=== PATIENT | female | born 2000 | race Caucasian/White ===

== ENCOUNTER 2020-03-02 12:08 | Inpatient (IN) | payer OTHER ==
[~2020-03-02] VITALS: Ht 149.9 cm; Wt 68.0 kg
[~2020-03-02 12:08] MED LIST: CEPH250SUA PO; Crutch1 EACH MISC; IBUP400 PO; IBUP600 PO; OMEP20ER PO; OMEP40CA12 PO; RANI150EL PO; Vigamox3 ML RIGHTEYE
[2020-03-02 12:56] LABS: BASOPHILS ABSOLUTE AUTO 0.01 K/mm3 (0.00-0.23); BASOPHILS PERCENT AUTO 0 % (0-2); EOSINOPHILS ABSOLUTE AUTO 0.04 K/mm3 (0.00-0.68); EOSINOPHILS PERCENT AUTO 1 % (0-6); Hematocrit 33.1 % (33.0-51.0); Hemoglobin 10.8 g/dL (11.5-16.0); IMMATURE GRAN ABSOLUTE AUTO 0.05 K/mm3 (0.00-0.10); IMMATURE GRAN PERCENT AUTO 1 % (0-1); LYMPHOCYTES ABSOLUTE AUTO 1.92 K/mm3 (0.84-5.20); LYMPHOCYTES PERCENT AUTO 23 % (21-46); MONOCYTES ABSOLUTE AUTO 0.64 K/mm3 (0.16-1.47); MONOCYTES PERCENT AUTO 8 % (4-13); Mean Corpuscular HGB 29.5 pg (26.0-34.0); Mean Corpuscular HGB Conc 32.6 g/dL (31.5-36.5); Mean Corpuscular Volume 90 fL (80-100); Mean Platelet Volume 11.7 fL (9.1-12.4); NEUTROPHILS PERCENT AUTO 68 % (41-73); Platelet Count 227 K/mm3 (150-400); RDW Coefficient Variation 12.9 % (11.7-14.2); RDW Standard Deviation 42.4 fL (35.1-46.3); Red Blood Cell Count 3.66 M/mm3 (3.80-5.20); White Blood Cell Count 8.36 K/mm3 (4.00-11.30)
[2020-03-02 13:06] LABS: Creatinine, Urine Random 67.7 mg/dL (27.00-270.00); Protein, Urine Random 50.3 mg/dL (0.0-11.9); Protein/Creat Ratio, Ur Random 0.7
[2020-03-02 13:23] LABS: Alanine Aminotransfer (ALT/SGP 27 U/L (12-78); Albumin, Blood 2.5 g/dL (3.4-5.0); Albumin/Globulin Ratio 0.6 (0.8-1.8); Alk Phos 184 U/L (50-136); Anion Gap 11 mmol/L (6-16); Aspartate Aminotrans (AST/SGOT 31 U/L (12-37); Bilirubin, Total 0.4 mg/dL (0.1-1.0); Blood Urea Nitrogen 13 mg/dL (8-24); Bun/Creatinine Ratio 22.8 (12.0-20.0); CO2, Blood 20 mmol/L (21-32); Calcium, Blood 8.5 mg/dL (8.5-10.1); Chloride, Blood 107 mmol/L (98-108); Creatinine, Blood 0.57 mg/dL (0.40-1.00); Globulin, Blood 4.1 g/dL (2.2-4.0); Glomerular Filtration Rate >60 (60-); Glucose, Blood 97 mg/dL (70-99); Potassium, Blood 4.2 mmol/L (3.5-5.5); Sodium, Blood 138 mmol/L (136-145); Total Protein, Blood 6.6 g/dL (6.4-8.2)
--- NOTE | 2020-03-02 14:27 | NUR ---
HERE FROM [facility] TO VISIT FAMILY. BP ELEVATED TWICE SO CAME FOR EVALUATION URINE PROTEIN/CREATNINE RATIO ELEVATED. PATIENT WILL BE 23 HOUR OBS AND 24 HOUR URINE PROTEIN
[2020-03-02] MEDS ORDERED: TUMS500 MG PO (14:49)
--- NOTE | 2020-03-02 17:00 | NUR ---
at 1600ish and 1700ish pt temp was done with temporal thermometer, on rt side at 1600 100.3 on rt side, when done on lt side 99.4 at 1700 98.9 on rt, when done on lt sie 99.4. pt reports feels a little warm she reports, pt denies any allergies to medications, pt is aware she doesnt have a fever, but we will continue to watch for temps.
--- NOTE | 2020-03-02 17:30 | NUR ---
urine dip done per dr cox request, only used 0.3cc of urine, total out is 700cc of urine for day shift
--- NOTE | 2020-03-02 18:42 | NUR ---
orders from dr cox to admit for cytotec induction til roberts of 8. then start pitocin, dr cox reports checked pt cervix was 1cm, thin, -[address] cox aware of increase in BP, stop 24 hour collection, dr cox talked to pt OB doc in [place], per verbal over the phone, put in a dr note the pt labs of gbs, rubella in the note. not able at this time to get a copy of the dr office visits.
--- NOTE | 2020-03-02 19:09 | NUR ---
report to rn
[2020-03-03 07:16] LABS: BASOPHILS ABSOLUTE AUTO 0.02 K/mm3 (0.00-0.23); BASOPHILS PERCENT AUTO 0 % (0-2); EOSINOPHILS ABSOLUTE AUTO 0.08 K/mm3 (0.00-0.68); EOSINOPHILS PERCENT AUTO 1 % (0-6); Hemoglobin 11.2 g/dL (11.5-16.0); IMMATURE GRAN ABSOLUTE AUTO 0.05 K/mm3 (0.00-0.10); IMMATURE GRAN PERCENT AUTO 0 % (0-1); LYMPHOCYTES ABSOLUTE AUTO 2.89 K/mm3 (0.84-5.20); LYMPHOCYTES PERCENT AUTO 23 % (21-46); MONOCYTES ABSOLUTE AUTO 0.81 K/mm3 (0.16-1.47); MONOCYTES PERCENT AUTO 6 % (4-13); Mean Corpuscular HGB 29.8 pg (26.0-34.0); Mean Corpuscular HGB Conc 32.9 g/dL (31.5-36.5); Mean Corpuscular Volume 90 fL (80-100); Mean Platelet Volume 11.7 fL (9.1-12.4); NEUTROPHILS ABSOLUTE AUTO 8.84 K/mm3 (1.96-9.15); NEUTROPHILS PERCENT AUTO 70 % (41-73); Platelet Count 236 K/mm3 (150-400); RDW Standard Deviation 42.2 fL (35.1-46.3); Red Blood Cell Count 3.76 M/mm3 (3.80-5.20); White Blood Cell Count 12.69 K/mm3 (4.00-11.30)
--- NOTE | 2020-03-03 07:50 | NUR ---
dr cox reports pt is rubella immune per the phone conversation with pt dr ozuna in [place]. 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
[2020-03-03 07:54] LABS: Alanine Aminotransfer (ALT/SGP 26 U/L (12-78); Albumin, Blood 2.6 g/dL (3.4-5.0); Albumin/Globulin Ratio 0.6 (0.8-1.8); Alk Phos 186 U/L (50-136); Anion Gap 12 mmol/L (6-16); Aspartate Aminotrans (AST/SGOT 30 U/L (12-37); Bilirubin, Total 0.5 mg/dL (0.1-1.0); Blood Urea Nitrogen 12 mg/dL (8-24); Bun/Creatinine Ratio 23.1 (12.0-20.0); CO2, Blood 19 mmol/L (21-32); Calcium, Blood 8.4 mg/dL (8.5-10.1); Chloride, Blood 107 mmol/L (98-108); Creatinine, Blood 0.52 mg/dL (0.40-1.00); Globulin, Blood 4.1 g/dL (2.2-4.0); Glomerular Filtration Rate >60 (60-); Glucose, Blood 90 mg/dL (70-99); Potassium, Blood 3.8 mmol/L (3.5-5.5); Sodium, Blood 138 mmol/L (136-145); Total Protein, Blood 6.7 g/dL (6.4-8.2)
--- NOTE | 2020-03-03 21:44 | NUR ---
RT CALLED FOR ASSESSMENT OF 3 MIN OLD . PT HAD INCREASED RR OF 60, NO DISTRESS OR INCREASED WOB. SATS 88%. PT HAD GOOD TONE AND COLOR. NO RT INTERVENTION DONE. RT DISMISSED BY RAQUEL SANDOVAL.
[2020-03-03 22:00] LABS: PCO2 Cord - Arterial 63.8 mmHg (40-50); PO2 Cord - Arterial 14.8 mmHg (16-20); pH Cord - Arterial 7.15 (7.28-7.35)
[2020-03-03 22:02] LABS: PCO2 Cord - Venous 55.8 mmHg (40-50); PO2 Cord - Venous 16.3 mmHg (28-32); pH Umbilical Cord - Venous 7.23 (7.26-7.35)
[2020-03-04 05:38] LABS: Hematocrit 28.9 % (33.0-51.0); Hemoglobin 9.5 g/dL (11.5-16.0); Mean Corpuscular HGB 29.5 pg (26.0-34.0); Mean Corpuscular HGB Conc 32.9 g/dL (31.5-36.5); Mean Corpuscular Volume 90 fL (80-100); Platelet Count 224 K/mm3 (150-400); RDW Standard Deviation 42.5 fL (35.1-46.3); Red Blood Cell Count 3.22 M/mm3 (3.80-5.20)
--- NOTE | 2020-03-05 09:41 | NUR ---
RN ROUNDED TO HELP W/ . PT REPORTS THAT IS GOING REALLY WELL. PT DENIES ANY QUESTIONS OR CONCERNS R/T BREASFTFEEDING.
== END 2020-03-05 10:15 | disposition home or self-care (01) | DRG 807 ==
LOC: OBS 12:08 → BC 12:08 → OBS 13:52 → BC 18:47
PROVIDERS: ADMIT Family Medicine
PROC: 3E0P7VZ Introduction of Hormone into Female Reproductive, Via Natural or Artificial Opening (ICD-10-PCS; 2020-03-02)
PROC: 10E0XZZ Delivery of Products of Conception, External Approach (ICD-10-PCS; principal; 2020-03-03)
PROC: 10907ZC Drainage of Amniotic Fluid, Therapeutic from Products of Conception, Via Natural or Artificial Opening (ICD-10-PCS; 2020-03-03)
PROC: 0HQ9XZZ Repair Perineum Skin, External Approach (ICD-10-PCS; 2020-03-03)
PROC: 00HU33Z Insertion of Infusion Device into Spinal Canal, Percutaneous Approach (ICD-10-PCS; 2020-03-03)
PROC: 3E0R3BZ Introduction of Anesthetic Agent into Spinal Canal, Percutaneous Approach (ICD-10-PCS; 2020-03-03)
DX: O14.94 Unspecified pre-eclampsia, complicating childbirth (principal); Z37.0 Single live birth; O70.0 First degree perineal laceration during delivery; Z3A.38 38 weeks gestation of pregnancy; O32.6XX0 Maternal care for compound presentation, not applicable or unspecified
CPT/HCPCS: 36415; 51702; 59025; 80053; 82570; 82803; 84156; 85025; 85027; 86850; 86900; 86901; J1885; J2001; J2590; J3010; J7120

== ENCOUNTER 2020-06-21 17:48 | Emergency (ER) | payer OTHER ==
[~2020-06-21] VITALS: Ht 149.9 cm; Wt 61.2 kg
[~2020-06-21 17:48] MED LIST changes: +TUMS500 MG PO
[2020-06-21 18:50] LABS: BASOPHILS ABSOLUTE AUTO 0.02 K/mm3 (0.00-0.23); BASOPHILS PERCENT AUTO 0 % (0-2); EOSINOPHILS ABSOLUTE AUTO 0.05 K/mm3 (0.00-0.68); EOSINOPHILS PERCENT AUTO 1 % (0-6); Hematocrit 40.2 % (33.0-51.0); IMMATURE GRAN ABSOLUTE AUTO 0.02 K/mm3 (0.00-0.10); IMMATURE GRAN PERCENT AUTO 0 % (0-1); LYMPHOCYTES ABSOLUTE AUTO 3.48 K/mm3 (0.84-5.20); LYMPHOCYTES PERCENT AUTO 42 % (21-46); MONOCYTES ABSOLUTE AUTO 0.58 K/mm3 (0.16-1.47); MONOCYTES PERCENT AUTO 7 % (4-13); Mean Corpuscular HGB Conc 32.3 g/dL (31.5-36.5); Mean Corpuscular Volume 87 fL (80-100); Mean Platelet Volume 10.2 fL (9.1-12.4); NEUTROPHILS ABSOLUTE AUTO 4.23 K/mm3 (1.96-9.15); NEUTROPHILS PERCENT AUTO 51 % (41-73); Platelet Count 283 K/mm3 (150-400); RDW Coefficient Variation 13.8 % (11.7-14.2); RDW Standard Deviation 43.8 fL (35.1-46.3); Red Blood Cell Count 4.64 M/mm3 (3.80-5.20); White Blood Cell Count 8.38 K/mm3 (4.00-11.30)
[2020-06-21 19:06] LABS: Alanine Aminotransfer (ALT/SGP 43 U/L (12-78); Alk Phos 137 U/L (50-136); Anion Gap 10 mmol/L (6-16); Aspartate Aminotrans (AST/SGOT 25 U/L (12-37); Bilirubin, Total 0.4 mg/dL (0.1-1.0); Blood Urea Nitrogen 11 mg/dL (8-24); Bun/Creatinine Ratio 17.9 (12.0-20.0); CO2, Blood 22 mmol/L (21-32); Calcium, Blood 8.3 mg/dL (8.5-10.1); Chloride, Blood 108 mmol/L (98-108); Creatinine, Blood 0.61 mg/dL (0.40-1.00); Glomerular Filtration Rate >60 (60-); Glucose, Blood 101 mg/dL (70-99); Potassium, Blood 3.5 mmol/L (3.5-5.5); Salicylate <1.7 mg/dL (2.8-20.0); Sodium, Blood 140 mmol/L (136-145)
[2020-06-21 19:07] LABS: Acetaminophen, Random <2.0 ug/mL (10.0-30.0)
[2020-06-21 19:14] LABS: U Amphetamine Screen Not Detected; U Barbituate Screen Not Detected; U Benzodiazapine Screen Not Detected; U Buprenorphine Screen Not Detected; U Cannabinoids Screen Not Detected; U Cocaine Screen Not Detected; U Methadone Screen Not Detected; U Methamphetamine Screen Not Detected; U Opiates Screen Not Detected; U Oxycodone Screen Not Detected; U Phencyclidine Screen Not Detected; U Propoxyphene Screen Not Detected
[2020-06-21] MEDS ORDERED: Zofran4 MG PO (19:31)
== END 2020-06-21 20:31 | disposition home or self-care (01) ==
LOC: ER 17:48
PROVIDERS: Emergency Medicine
DX: T51.91XA Toxic effect of unspecified alcohol, accidental (unintentional), initial encounter (principal); G92 Toxic encephalopathy; F10.129 Alcohol abuse with intoxication, unspecified
CPT/HCPCS: 36415; 80053; 85025; 96361; 96374; 99284-25; G0480; J2405; J7030; P9612